=== PATIENT | female | born 1960 | race Caucasian/White ===

== ENCOUNTER 2023-11-15 03:42 | Observation (INO) | payer BC ==
[2023-11-15 04:30] LABS: #Monocytes 0.4 thou/uL (0.11-0.59); #Neutrophils 2.7 thou/uL (1.40-6.50); %Basophils 0.3 % (0.0-1.0); %Eosinophils 0.3 % (0.0-10.0); %Lymphocytes 20.4 % (21.0-51.0); %Monocytes 10.8 % (0.0-10.0); %Neutrophils 67.7 % (42.0-75.0); Hematocrit 42.4 % (36.0-47.0); Hemoglobin 15.1 g/dL (12.0-16.0); Mean Corpuscular HGB CONC 35.6 g/dL (32.0-36.0); Mean Corpuscular Hemoglobin 42.8 pg (27.0-31.0); Mean Corpuscular Volume 120.1 fl (78.0-98.0); Mean Platelet Volume 10.3 fL (7.4-10.4); Platelet Count 111 10x3/uL (130-400); RBC Distribution Width 15.2 % (11.5-14.5); Red Blood Cell (RBC) Count 3.53 mill/uL (4.20-5.40)
[2023-11-15 04:44] LABS: INR-International Normal Ratio 1.1; Prothrombin Time 14.2 sec (12.0-14.7)
[2023-11-15 04:45] LABS: PTT 28.5 sec (22.9-36.1)
[2023-11-15 05:02] LABS: ALT (SGPT) 14 U/L (8-55); AST (SGOT) 18 U/L (5-34); Albumin 3.4 g/dL (3.4-4.8); Alkaline Phosphatase 80 U/L (40-110); Anion Gap 14 mmol/L (10-20); BUN (Urea Nitrogen) 6 mg/dL (9.8-20.1); Calc. Creatinine Clearance 0 mL/min (70-130); Calcium 8.3 mg/dL (7.8-10.44); Carbon Dioxide 19 mmol/L (23-31); Chloride 110 mmol/L (98-107); Estimated GFR 97; Glucose 75 mg/dL (80-115); Potassium 3.8 mmol/L (3.5-5.1); Protein, Total 5.4 g/dL (5.8-8.1); Sodium 139 mmol/L (136-145)
[2023-11-15] MEDS ORDERED: Ondansetron ODT 4 MG TAB PO PRN (06:25)
[2023-11-15] MEDS ORDERED: Dextrose 50% Abboject 50 ML SYRINGE SLOW IVP PRN (06:25)
[2023-11-15] MEDS ORDERED: Ondansetron PF 4 MG/2 ML Vial IVP PRN (06:25)
[2023-11-15] MEDS ORDERED: Dextrose 5% in Water 1,000 ML IV PRN (06:25)
[2023-11-15] MEDS ORDERED: Glucagon 1 MG/ML KIT IM PRN (06:25)
[2023-11-15] MEDS ORDERED: hydrALAZINE 20 MG/ML VIAL SLOW IVP PRN (07:22)
[2023-11-15] MEDS ORDERED: Labetalol HCl 100 MG/20 ML VIAL SLOW IVP PRN (07:24)
[2023-11-15] MEDS: Acetaminophen 325 MG TAB PO PRN (07:30)
[2023-11-15] MEDS ORDERED: Acetaminophen 325 MG TAB ONE ×2 (07:31→13:33)
[2023-11-15] MEDS: TETANUS, DIPHTHERIA TOX,ADULT (TDVAX) 0.5 ML VIAL IM ONE (13:21)
[2023-11-15] MEDS ORDERED: Amlodipine 5 MG TAB ONE ×2 (13:23→17:04)
[2023-11-15] MEDS ORDERED: Folic Acid 1 MG TAB ONE (13:23)
[2023-11-15] MEDS ORDERED: Thiamine 100 MG TAB ONE (13:24)
[2023-11-15] MEDS: Amlodipine 5 MG TAB PO SCH ×2 (13:32→17:10)
[2023-11-15] MEDS: Folic Acid 1 MG TAB PO SCH (13:32)
[2023-11-15] MEDS: Thiamine 100 MG TAB PO SCH (13:32)
[2023-11-15] MEDS ORDERED: Metoprolol Tartrate 25 MG TAB ONE (17:05)
[2023-11-15] MEDS: Metoprolol Tartrate 25 MG TAB PO SCH ×2 (17:10→21:44)
[2023-11-15] MEDS ORDERED: Metoprolol Tartrate 25 MG TAB PO SCH (21:00)
[2023-11-15] MEDS: Oxazepam 10 MG CAP PO SCH (21:44)
[2023-11-16 04:38] LABS: #Eosinphils 0.1 thou/uL (0.0-0.7); #Monocytes 0.5 thou/uL (0.11-0.59); #Neutrophils 2.8 thou/uL (1.40-6.50); %Basophils 0.7 % (0.0-1.0); %Eosinophils 1.1 % (0.0-10.0); %Lymphocytes 24.4 % (21.0-51.0); %Monocytes 10.5 % (0.0-10.0); %Neutrophils 62.8 % (42.0-75.0); Hematocrit 44.7 % (36.0-47.0); Hemoglobin 15.5 g/dL (12.0-16.0); Mean Corpuscular HGB CONC 34.7 g/dL (32.0-36.0); Mean Corpuscular Hemoglobin 41.9 pg (27.0-31.0); Mean Corpuscular Volume 120.8 fl (78.0-98.0); Mean Platelet Volume 10.3 fL (7.4-10.4); Platelet Count 121 10x3/uL (130-400); RBC Distribution Width 15.2 % (11.5-14.5); White Blood Cell (WBC) Count 4.4 10x3/uL (4.8-10.8)
[2023-11-16 04:59] LABS: Anion Gap 15 mmol/L (10-20); BUN (Urea Nitrogen) 8 mg/dL (9.8-20.1); Calc. Creatinine Clearance 98 mL/min (70-130); Calcium 8.2 mg/dL (7.8-10.44); Carbon Dioxide 20 mmol/L (23-31); Chloride 108 mmol/L (98-107); Estimated GFR 98; Glucose 84 mg/dL (80-115); Magnesium 2.1 mg/dL (1.6-2.6); Phosphorus 3.1 mg/dL (2.3-4.7); Potassium 3.7 mmol/L (3.5-5.1); Sodium 139 mmol/L (136-145)
[2023-11-16] MEDS: Amlodipine 10 MG TAB PO SCH (08:26)
[2023-11-16] MEDS ORDERED: Amlodipine 5 MG TAB PO SCH (09:00)
[2023-11-16 11:57] VITALS: TEMP 98
[2023-11-16 15:46] VITALS: BP 124/75
== END 2023-11-16 16:20 | disposition home or self-care (01) ==
LOC: ERS 03:42 → ERHOLD 04:22 → 2SE 18:37
PROVIDERS: ADMIT Specialist; ATTEND Specialist
DX: I60.9 Nontraumatic subarachnoid hemorrhage, unspecified (principal); F17.210 Nicotine dependence, cigarettes, uncomplicated; F10.129 Alcohol abuse with intoxication, unspecified; R79.89 Other specified abnormal findings of blood chemistry; Z98.84 Bariatric surgery status; Z90.10 Acquired absence of unspecified breast and nipple; Z88.5 Allergy status to narcotic agent; Z90.49 Acquired absence of other specified parts of digestive tract
CPT/HCPCS: 36415; 36416; 70450; 80048; 80053; 83735; 84100; 84484; 85025; 85610; 85730; 93306; 99285; G0378